=== PATIENT | male | born 1990 | race Caucasian/White ===

== ENCOUNTER 2017-02-18 20:08 | Emergency (ER) | payer OTHER ==
[2017-02-18 20:37] VITALS: BP 132/74; PULSE 82; TEMP 98.1; BMI 36.5
--- NOTE | 2017-02-18 20:41 | PDOC ---
History of Present Illness - General Chief Complaint: Injury Stated Complaint: KNEE PAIN Time Seen by Provider: 02/18/17 20:38 History Source: Patient Exam Limitations: No Limitations - History of Present Illness Initial Comments: CHIEF COMPLAINT: 26 y/o afebrile male with no significant PMH c/o right knee pain. HISTORY OF PRESENT ILLNESS: The patient was walking down the stairs this evening when his right knee buckled. He states he now cannot fully extend his right knee and it's painful when he puts pressure on his right leg. He denies fall, LOC, head trauma, redness/warmth to affected knee, numbness/tingling in affected extremity. Vital signs on arrival are within normal limits. REVIEW OF SYSTEMS: GENERAL/CONSTITUTIONAL: No fever/chills. No weakness. No weight change. MUSCULOSKELETAL: +right knee pain and buckling. No neck or back pain. SKIN: No rash or easy bruising. NEUROLOGIC: No headache, vertigo, loss of consciousness, or loss of sensation. PHYSICAL EXAM: VITAL_SIGNS: within normal limits GENERAL_APPEARANCE: alert, cooperative, no obvious discomfort. Pt brought in a wheelchair. MENTAL_STATUS: speech clear, oriented X 3, responds appropriately to questions. NEURO: motor intact and sensory intact in injured extremity. EXTREMITIES: good pulse in injured extremity. Minimal swelling to right knee joint without erythema, warmth or streaking. Patella is non tender and mobile. Pain with palpation of lateral right joint line. Negative lachmann's test. Pt cannot fully extend right knee secondary to posterior swelling. SKIN: warm, dry, good color. Past History - Past Medical History Allergies/Adverse Reactions: Allergies Allergy/AdvReac Type Severity Reaction Status Date / Time No Known Allergies Allergy Verified 02/18/17 20:35 Home Medications: Ambulatory Orders NK [No Known Home Medication] 02/18/17 Asthma: Yes - Psycho/Social/Smoking Cessation Hx Anxiety: No Suicidal Ideation: No Smoking Status: No Smoking History: Current every day smoker Have you smoked in the past 12 months: Yes Number of Cigarettes Smoked Daily: 0 Information on smoking cessation initiated: No Hx Alcohol Use: No Drug/Substance Use Hx: Yes (marijuana) *Physical Exam - Vital Signs Last Vital Signs Temp Pulse Resp BP Pulse Ox 98.1 F 82 18 132/74 100 02/18/17 20:33 02/18/17 20:33 02/18/17 20:33 02/18/17 20:33 02/18/17 20:33 Medical Decision Making - Medical Decision Making A/P: 26 y/o afebrile male with right knee pain s/p buckling of right knee this evening. Plan is as follows: 1. xray right knee 2. IM toradol 3. knee immobilizer 4. crutches. Xray right knee IMPRESSION: (wet read): No acute pathology. The patient was given his results. Instructed him to keep knee immobilizer on and use crutches until he can follow up with Dr. Wise. Suggested RICE instructions and motrin every 6 hours for pain. Instructed him to return to the ER with any worsening or concerning symptoms. The patient verbalizes understanding of all instructions, has no further questions and is awaiting discharge. *DC/Admit/Observation/Transfer Diagnosis at time of Disposition: Knee pain, right Qualifiers: Chronicity: acute Qualified Code(s): M25.561 - Pain in right knee - Discharge Dispostion Disposition: HOME Condition at time of disposition: Good - Referrals Referrals: STAFF,NOT ON [Primary Care Provider] - Jese Wise MD [Staff Physician] - Call tomorrow - Patient Instructions Printed Discharge Instructions: DI for Knee Pain, How To Perform RICE (Rest, Ice, Compress, Elevate) Additional Instructions: Discharge Instructions: -Use knee immobilizer and crutches until you are seen by Dr. Wise -Call Dr. Wise tomorrow to schedule follow up appointment -Take 600mg of Motrin every 6 hours with food for pain and swelling -Follow RICE instructions -Return to the ER with any worsening or concerning symptoms
[2017-02-18] MEDS ORDERED: KETOROLAC TROMETHAMINE 60 MG/2 ML VIAL IM ONE (21:17)
== END 2017-02-18 22:31 | disposition home or self-care (01) ==
LOC: JERFT 20:08
PROC: 3E0233Z Introduction of Anti-inflammatory into Muscle, Percutaneous Approach (ICD-10-PCS; principal; 2017-02-18)
PROC: 2W3LXYZ Immobilization of Right Lower Extremity using Other Device (ICD-10-PCS; 2017-02-18)
DX: M25.561 Pain in right knee (principal)
CPT/HCPCS: 29530; 73560-TC-RT; 96372; 99281-25